=== PATIENT | male | born 1935 | race Two or more races ===

== ENCOUNTER 2017-04-25 22:31 | Inpatient (IN) | payer OTHER ==
[~2017-04-25] VITALS: Ht 175.3 cm; Wt 79.8 kg
[2017-04-25 22:57] LABS: BASOPHILS # (AUTO) 0.1 K/uL (0.0-8.0); BASOPHILS % (AUTO) 0.9 % (0.0-2.0); EOSINOPHILS # (AUTO) 0.3 K/uL (0.0-0.7); HEMATOCRIT 41.1 % (40-50); HEMOGLOBIN 13.9 G/DL (14.0-18.0); LYMPHOCYTES # (AUTO) 1.4 K/UL (0.8-4.8); LYMPHOCYTES % (AUTO) 20.4 % (20.5-51.5); MEAN CORPUSCULAR HEMOGLOBIN 32.4 UUG (27.0-31.0); MEAN CORPUSCULAR HGB CONC 34 g/dL (32.0-37.0); MONOCYTES # (AUTO) 0.7 K/UL (0.1-1.30); MONOCYTES % (AUTO) 9.8 % (0.0-11.0); NEUTROPHILS # (AUTO) 4.2 K/UL (1.8-8.9); NEUTROPHILS % (AUTO) 63.9 % (38.5-71.5); PLATELET COUNT (AUTO) 204 K/UL (150-450); RED BLOOD CELL COUNT(AUTO) 4.28 MIL/UL (4.7-6.1); WHITE BLOOD COUNT (AUTO) 6.7 K/UL (4.0-11.2)
[2017-04-25 23:03] LABS: CARBON DIOXIDE 28 mmol/L (21-32); CHLORIDE 107 mmol/L (98-107); GLUCOSE 108 mg/dL (74-106); POTASSIUM 3.7 mmol/L (3.5-5.1); UREA NITROGEN, BLOOD 17 mg/dL (7-18)
[2017-04-25] MEDS ORDERED: CHOL10002 PO (23:06)
[2017-04-25] MEDS ORDERED: NIASPAN ER PO (23:06)
[2017-04-25] MEDS ORDERED: LORA-258 PO (23:06)
[2017-04-25] MEDS ORDERED: NITR0.4T48 SL (23:06)
[2017-04-25] MEDS ORDERED: ATEN-171 PO (23:06)
[2017-04-25] MEDS ORDERED: CYAN50008 PO (23:06)
[2017-04-25] MEDS ORDERED: DONE10TA11 PO (23:06)
[2017-04-25] MEDS ORDERED: SIMV20TA2 PO (23:06)
[2017-04-25 23:08] LABS: ACETAMINOPHEN 2.1 ug/mL (10-30); ALANINE AMINOTRANSFERASE 23 U/L (16-63); ALKALINE PHOSPHATASE 56 U/L (50-136); ASPARTATE AMINOTRANSFERASE 21 U/L (15-37); BILIRUBIN,DIRECT 0.1 mg/dL (0.0-0.2); BILIRUBIN,TOTAL 0.3 mg/dL (0.2-1.0); ETHANOL < 3 MG/DL (0-0); TOTAL PROTEIN, SERUM 6.4 g/dL (6.4-8.2)
[2017-04-25 23:14] LABS: *BILIRUBIN,URIN NEGATIVE (NEGATIVE); *BLOOD, URINE NEGATIVE (NEGATIVE); *CLARITY,URINE CLEAR (CLEAR); *COLOR,URINE LIGHT YELLOW (YELLOW); *KETONES,URINE NEGATIVE (NEGATIVE); *PROTEIN,URINE NEGATIVE (NEGATIVE); *UROBILINOGEN,URINE 0.2 E.U./dl (NORMAL); LEUKOCYTE ESTERASE ,URINE NEGATIVE (NEGATIVE); NITRITE, URINE NEGATIVE (NEGATIVE); UGLUCOSE NEGATIVE (NEGATIVE)
[2017-04-25 23:27] LABS: *AMPHETAMINE, URINE NEGATIVE (NEGATIVE); *BARBITURATE, URINE NEGATIVE (NEGATIVE); *CANNABINOID, URINE NEGATIVE (NEGATIVE); *COCCAINE, URINE NEGATIVE (NEGATIVE); *OPIATE, URINE NEGATIVE (NEGATIVE); *PHENCYCLIDINE SCREEN,URINE NEGATIVE (NEGATIVE)
--- NOTE | 2017-04-25 23:28 | NUR ---
Pt. admitted to MHU, under care of Dr. MYRICK Belongs List completed. MRSA DONE.
[2017-04-25 23:40] LABS: RBC,URINE 0-3 /HPF (0-3); WBC,URINE 0-3 /HPF (0-3)
--- NOTE | 2017-04-25 23:55 | NUR ---
81 Y.O. MALE BROUGHT TO MHU ON 5150 FOR DTO. Pt BROUGHT TO UNIT VIA W/C ACCOMPANIED BY ER STAFF. ACCORDING TO THE HOLD, Pt HAD BEEN HAVING INCREASED AGITATION RECENTLY, PER STAFF AT HIS FACILITY. Pt STATED TO SPECIAL EVENTS DRIVER HIS INTENT TO HARM OTHERS. PER Pt's MD, Pt HAS A FIXED DELUSION THAT HE IS IN [place] [employer] AND "NEEDS A GUN TO PROTECT HIMSELF." Pt HAD BEEN PACING AND UNABLE TO SLEEP, AND REQUIRED AN IM OF ATIVAN 1mg TO CALM. Pt APPEARS TO REFLECT WHAT IS ON THE HOLD, RN CONCURS WITH HOLD. ADVISEMENT GIVEN TO Pt. UPON FACE TO FACE ASSESSMENT, Pt APPEARS UNKEMPT AND DISHEVELED IN A SOILED BUTTON UP SHIRT AND NO BOTTOMS. A+Ox1 TO NAME ONLY. Pt DID NOT KNOW THAT DAY/DATE/MONTH, DID NOT KNOW WHO THE PRESIDENT IS, AND STATED "I DON'T KNOW" WHEN ASKED WHY HE WAS HERE. Pt IS ANXIOUS, RESTLESS AND ANGRY HE IS UNABLE TO LEAVE THE UNIT TO GO BACK HOME. Pt IS EASILY IRRITABLE, AND REQUIRES FREQUENT REDIRECTION BECAUSE HE REPEATEDLY STATES, "I'M NOT STAYING HERE, I'M LEAVING." Pt IS CONFUSED, DISORIENTED, DISORGANIZED, AND FORGETFUL. Pt GIVES MINIMAL DISCLOSURE AND IS SOMEWHAT UNCOOPERATIVE WITH STAFF DIRECTION. PRESENTS WITH PRESSURED SPEECH AND FLAT/LABILE AFFECT. Pt DENIES EVER BEING AGGRESSIVE, DENIES SI/HI, AND STATES HIS "ROOMMATE IS TO BLAME FOR EVERYTHING." Pt ALSO DENIES AH/VH. Pt EDUCATED ON UNIT RULES AND ORIENTED TO THE UNIT AND HIS ROOM. PATIENT RIGHTS HANDBOOK GIVEN. Pt HAS H/O DEMENTIA, HTN, OA, ANEMIA, CAD, GERD, HLD, AND BPH, NKA. DR MYRICK AND DR MORATAYA NOTIFIED OF ADMISSION, ORDERS RECEIVED. Pt BELONGINGS INVENTORIED, CONTRABAND PLACED IN UNIT LOCKER. VS STABLE, DENIES PAIN. Pt ARRIVED WITH CONSERVATOR AND DETAIN AND TREAT PAPERWORK FROM [facility], CONSERVATOR IS YARELI RHODES AT [phone]. WILL ATTEMPT TO GET [facility] OF [place] IN THE A.M.
[2017-04-26 00:14] VITALS: BP 133/77
[2017-04-26] MEDS ORDERED: ACETAMINOPHEN 325 MG TABLET PO PRN (00:15)
[2017-04-26] MEDS ORDERED: MAG HYDROX/AL HYDROX/SIMETH 30 ML LIQUID UDC PO PRN (00:15)
[2017-04-26] MEDS ORDERED: MAGNESIUM HYDROXIDE 30 ML LIQUID UDC PO PRN (00:15)
--- NOTE | 2017-04-26 00:15 | NUR ---
PT NOTED TO BE ANXIOUS AND RESTLESS, VERBALIZING INTENT TO LEAVE, UNABLE TO COMPREHEND THAT HE IS 5150, [employer] SPEAKING STAFF BROUGHT IN TO ASSIST WITH INTERPRETATION, AND ADMISSION PROCESS. PRN SLEEPING AID ADMINISTERED, PT COMPLAINT, WILL CONTINUE TO MONITOR.
[2017-04-26] MEDS: TEMAZEPAM 7.5 MG CAPSULE PO PRN (00:16)
[2017-04-26] MEDS ORDERED: TEMAZEPAM 7.5 MG CAPSULE ONE (00:25)
[2017-04-26] MEDS ORDERED: LORAZEPAM 0.5 MG TABLET ONE (00:49)
--- NOTE | 2017-04-26 01:05 | NUR ---
STILL AWAKE, ANXIOUS AND RESTLESS, CONTINUES TO INDICATE HIS INTENT TO LEAVE, ANTI ANXIETY MED GIVE, SNACKS OFFERED, WILL CONTINUE TO MONITOR CLOSELY.
[2017-04-26] MEDS: LORAZEPAM 0.5 MG TABLET PO PRN ×3 (01:09→15:56)
--- NOTE | 2017-04-26 02:40 | NUR ---
PT STILL AWAKE AND RESTLESS, ATTEMPTING TO CLIMB OUT OF GERICHAIR, PT TAKEN OUT AND WALKED TOWARDS HIS HIS ROOM, BUT HE INSISTED ON LEAVING. ASSISTED TO HIS BED, WITH BED ALARM IMPLACE, WILL CONTINUE TO MONITOR CLOSELY.
[2017-04-26 07:30] VITALS: BP 147/86
--- NOTE | 2017-04-26 10:30 | NUR ---
CALLED CAROL RHODES, PUBLIC GUARDIAN TO OBTAIN AUTHORIZATION TO DETAIN AND TREAT. MR. RHODES IS OUT OF THE OFFICE UNTIL 05/02/17. LEFT A MESSAGE TO THE QUALITY ASSURANCE MANAGER ON [place] (DAVID ARNOLD [phone]). WILL TRY TO CONTACT LATER.
[2017-04-26 16:00] VITALS: BP 133/78
[2017-04-26 16:46] LABS: *BILIRUBIN,URIN NEGATIVE (NEGATIVE); *BLOOD, URINE NEGATIVE (NEGATIVE); *CLARITY,URINE CLEAR (CLEAR); *COLOR,URINE YELLOW (YELLOW); *KETONES,URINE NEGATIVE (NEGATIVE); *PROTEIN,URINE NEGATIVE (NEGATIVE); *UROBILINOGEN,URINE 0.2 E.U./dl (NORMAL); LEUKOCYTE ESTERASE ,URINE NEGATIVE (NEGATIVE); NITRITE, URINE NEGATIVE (NEGATIVE); UGLUCOSE NEGATIVE (NEGATIVE)
[2017-04-26 18:40] LABS: RBC,URINE 0-3 /HPF (0-3); WBC,URINE NONE SEEN /HPF (0-3)
[2017-04-26] MEDS: DIVALPROEX 250 MG TABLET.DR PO SCH (20:19)
[2017-04-26] MEDS: QUETIAPINE FUMARATE 25 MG TABLET PO SCH (20:19)
[2017-04-26 20:31] VITALS: BP 121/61
--- NOTE | 2017-04-26 21:02 | NUR ---
PATIENT RECEIVED IN BED AWAKE, PATIENT REMAINS WITH A 1:1 SITTER FOR SAFETY. PATIENT RESTLESS, CONFUSED AND DISORIENTED REQUIRES REDIRECTION. PATIENT COMPLIANT WITH MEDICATIONS WITH MINIMAL PROMPTING. PATIENT IN NO APPARENT DISTRESS WILL CONTINUE TO MONITOR. NO AGGRESSIVE OR COMBATIVE BEHAVIOR NOTED WILL CONTINUE TO MONITOR. PATIENT IS EASILY AGITATED, AND IS EASILY IRRITABLE, HOWEVER IS REDIRECTABLE. BED IN LOWEST POSITION, BED LOCKED, AND BED ALARM ON WHILE IN BED.
[2017-04-27 07:30] VITALS: BP 112/54
[2017-04-27] MEDS: QUETIAPINE FUMARATE 25 MG TABLET PO SCH ×2 (08:06→20:25)
[2017-04-27] MEDS: DIVALPROEX 250 MG TABLET.DR PO SCH ×2 (08:06→20:25)
--- NOTE | 2017-04-27 15:00 | NUR ---
Initial discharge instructions: Pt resides at [facility] [[address] [place],[address];[phone]].Pt is confused and unable to verbalize where he would like to be discharge.JOSÉ MIGUEL called and left a voicemail for LPS Conservator, Hansa Livingston [phone] to discuss discharge plans.JOSÉ MIGUEL will speak with pt,conservator,and MD regarding appropriate discharge plans.SW will form a safe and proper discharge.
--- NOTE | 2017-04-27 15:02 | NUR ---
UR Note: Review due today. JOSÉ MIGUEL called Alvarez SMITH with N [phone] and left daily clinicals on confidential voicemail. Awaiting authorization.
[2017-04-27] MEDS ORDERED: NITROGLYCERIN 0.4 MG/TAB BOTTLE SL PRN (15:45)
--- NOTE | 2017-04-27 16:52 | NUR ---
Trigger for new admit consult patient is 81 y/o male who present for behavior escalation Tolerating current diet(cardiac),eating 100% of meals BMI 26-overweight,physical assessment report suggest no overt malnutrition labs: 04/25 RBC-4.28,HGB-13.9,GLUCOSE-108,INA2F-7.7,ALBUMIN-3.3 BM PRESENT WNL SKIN INTACT No nutrition diagnosis at this time monitor:po intake,weight,new labs outcome: maintain 100% of po intake during hospital stay no N/V/D/C no significant weight changes during hospital stay Addendum: 04/27/17 at [address] Amended: Links added.
[2017-04-27] MEDS: SIMVASTATIN 20 MG TABLET PO SCH (20:25)
[2017-04-27 21:02] VITALS: BP 121/61
[2017-04-28 07:30] VITALS: BP 153/78
[2017-04-28] MEDS: DIVALPROEX 250 MG TABLET.DR PO SCH ×2 (08:21→20:08)
[2017-04-28] MEDS: CHOLECALCIFEROL 1,000 UNIT TABLET PO SCH (08:21)
[2017-04-28] MEDS: QUETIAPINE FUMARATE 25 MG TABLET PO SCH ×2 (08:21→20:08)
--- NOTE | 2017-04-28 10:47 | NUR ---
UR Note: Spoke with Alvarez SMITH with [facility] [phone] and provided clinicals. Patient was authorized through the weekend 04/28/17-04/30/17. Review due on Monday05/01/17. Authorization #[id number]
[2017-04-28 15:00] VITALS: BP 122/74
[2017-04-28] MEDS: SIMVASTATIN 20 MG TABLET PO SCH (20:08)
[2017-04-28 21:57] VITALS: BP 121/70
--- NOTE | 2017-04-29 06:27 | NUR ---
Pt REMAINS WITH 1:1 SITTER AT ALL TIMES D/T FALL RISK. NO AGGRESSIVE OR COMBATIVE BEHAVIORS DURING SHIFT. REFUSED AM SHOWER, STATED, "AFTER BREAKFAST." SLEPT 8.15 HOURS.
[2017-04-29 08:33] VITALS: BP 138/94
[2017-04-29] MEDS: CHOLECALCIFEROL 1,000 UNIT TABLET PO SCH (08:38)
[2017-04-29] MEDS: DIVALPROEX 250 MG TABLET.DR PO SCH ×2 (08:38→20:12)
[2017-04-29] MEDS: QUETIAPINE FUMARATE 25 MG TABLET PO SCH ×2 (08:38→20:12)
[2017-04-29 13:00] VITALS: BP 109/71
[2017-04-29 20:06] VITALS: BP 123/85
[2017-04-29] MEDS: SIMVASTATIN 20 MG TABLET PO SCH (20:12)
[2017-04-29] MEDS: TEMAZEPAM 7.5 MG CAPSULE PO PRN (23:06)
[2017-04-30 07:30] VITALS: BP 127/75
[2017-04-30] MEDS: QUETIAPINE FUMARATE 25 MG TABLET PO SCH ×2 (08:54→20:27)
[2017-04-30] MEDS: CHOLECALCIFEROL 1,000 UNIT TABLET PO SCH (08:54)
[2017-04-30] MEDS: DIVALPROEX 250 MG TABLET.DR PO SCH ×2 (08:54→20:27)
[2017-04-30 15:47] VITALS: BP 117/68
[2017-04-30 20:16] VITALS: BP 116/73
[2017-04-30] MEDS: SIMVASTATIN 20 MG TABLET PO SCH (20:27)
[2017-05-01 07:30] VITALS: BP 102/55
[2017-05-01] MEDS: CHOLECALCIFEROL 1,000 UNIT TABLET PO SCH (08:43)
[2017-05-01] MEDS: QUETIAPINE FUMARATE 25 MG TABLET PO SCH (08:43)
[2017-05-01] MEDS: DIVALPROEX 250 MG TABLET.DR PO SCH (08:43)
--- NOTE | 2017-05-01 10:21 | NUR ---
DC Note: Patient will be discharged back to [facility] [[address] [place] [address]; [phone]] via private transportation at 1:00pm. Spoke with Beba at [facility] ( ) who scheduled transportation any time after 11:00 am [Reservation #[id number]]. Spoke with Raina at the facility who stated they would accept the patient today. Patient will return to room 38A. SW called patient's LPS Conservator, Hansa Livingston [phone] and left a voicemail including discharge plans. Patient is aware and agreeable with discharge plans. Patient will follow-up with (Microstrategy Architect) and (Psychiatrist) at the facility. For smoking cessation, patient was referred to [employer] [id number]-[id number] and [employer] [phone].
--- NOTE | 2017-05-01 15:00 | NUR ---
UR Note: JOSÉ MIGUEL called Alvarez SMITH with [facility] [phone] and provided discharge clinicals. Authorization #[id number]
[2017-05-01 15:34] VITALS: BP 117/77
--- NOTE | 2017-05-01 17:40 | NUR ---
pt is being discharged back to [facility]. Pt is willing to go. no distress noted. Pt is alert/oriented x2. all belongings Report was called and given to CELINA Fernandez. pt is being picked up by private transportation arranged by pt's insurance.
[2017-05-01 20:12] VITALS: BP 139/70
== END 2017-05-01 19:00 | DRG 885 ==
LOC: ER 22:31 → GPS 23:34
PROVIDERS: ADMIT Psychiatry & Neurology Psychiatry; ATTEND Internal Medicine
DX: F20.9 Schizophrenia, unspecified (principal); F03.91 Unspecified dementia, unspecified severity, with behavioral disturbance; E88.09 Other disorders of plasma-protein metabolism, not elsewhere classified; D50.9 Iron deficiency anemia, unspecified; E78.5 Hyperlipidemia, unspecified; F41.9 Anxiety disorder, unspecified; K21.9 Gastro-esophageal reflux disease without esophagitis; I25.10 Atherosclerotic heart disease of native coronary artery without angina pectoris; I10 Essential (primary) hypertension; N40.0 Benign prostatic hyperplasia without lower urinary tract symptoms; M19.90 Unspecified osteoarthritis, unspecified site; F29 Unspecified psychosis not due to a substance or known physiological condition
CPT/HCPCS: 36415; 80307; 85025; 87086; 93005; A4663; G0480; G0480-TC; J3490